=== PATIENT | female | born 1985 ===

== ENCOUNTER 2020-12-18 07:33 | Outpatient (CLI) | payer OTHER | END 2020-12-18 07:39 | disposition home or self-care (01) | LOC: LAB 07:33 | PROVIDERS: ATTEND Surgery | DX: Z20.828 Contact with and (suspected) exposure to other viral communicable diseases (principal) ==

== ENCOUNTER 2020-12-20 06:15 | Day surgery (SDC) | payer OTHER | END 2020-12-20 21:30 | disposition home or self-care (01) | LOC: CIR.AMB 06:15 | PROVIDERS: ATTEND Surgery | DX: C50.811 Malignant neoplasm of overlapping sites of right female breast (principal); C50.812 Malignant neoplasm of overlapping sites of left female breast; Z15.01 Genetic susceptibility to malignant neoplasm of breast; Z20.828 Contact with and (suspected) exposure to other viral communicable diseases ==